=== PATIENT | male | born 1990 | race Two or more races ===

== ENCOUNTER 2017-09-04 15:24 | Emergency (ER) | payer OTHER ==
[~2017-09-04] VITALS: Ht 177.8 cm; Wt 140.6 kg
--- NOTE | 2017-09-04 15:56 | Emergency Room Report ---
History of Present Illness General Chief Complaint: Back Pain-No Injury Present Illness HPI 26 YO Male presents to ED c/o 11/26 in severity acute onset LBP s/p Lidocaine injection to thoracic spine 2 days ago. No fevers or chills. No paresthesias or urinary retention or incontinence. He reports pain is primarily on the left side and on occasion will shoot down towards the left leg. Patient reports having chronic back pain after recent accident for which he is not receiving the spinal lidocaine injections for. He reports his next appointment is on October 16. Denies new trauma or fall. denies night sweats, or hx of cancer. pt. reports hx of herniating disks at the level of where his pain is. he presents with CD MRI images on CD. Denies loss of sensation or gross motor movements of the extremities, Denies CP, Palpitations, LOC, AMS, dizziness, Changes in Vision, weakness, difficulty ambulating,or a sudden severe headache. Allergies: Coded Allergies: No Known Allergies (Unverified , 09/04/17) Patient History Past Medical History: see triage record Past Surgical History: none Pertinent Family History: none Reviewed Nursing Documentation: PMH: Agreed; PSxH: Agreed Review of Systems All Other Systems: negative except mentioned in HPI Physical Exam Vital Signs Date Time Temp Pulse Resp B/P (MAP) Pulse Ox O2 Delivery O2 Flow Rate FiO2 09/04/17 15:43 98.1 90 20 112/68 94 Room Air 98.1 Sp02 EP Interpretation: reviewed, normal General Appearance: alert, GCS 15, non-toxic, mild distress Head: normocephalic, atraumatic ENT: hearing grossly normal, normal voice Neck: full range of motion Respiratory: lungs clear, normal breath sounds, speaking full sentences Cardiovascular #1: regular rate, rhythm Musculoskeletal: back normal, gait/station normal - compensatory, normal range of motion, tender - Left lumbar paraspinal TTP, TTP midline 2 inches below injection sites, no tenderness of the injection sites no evidence of Superficial ST infection. Neurologic: alert, oriented x3, responsive, motor strength/tone normal, sensory intact, normal gait - compensatory, speech normal, other - no saddle anesthesia, grossly normal Psychiatric: judgement/insight normal Skin: normal color, no rash, warm/dry, well hydrated Medical Decision Making PA Attestation Dr. Barragan is my supervising Physician whom patient management has been discussed with. Diagnostic Impression: Primary Impression: Back pain Qualified Codes: M54.42 - Lumbago with sciatica, left side ER Course 26 YO Male presents to ED c/o 11/26 in severity acute onset LBP s/p Lidocaine injection to thoracic spine 2 days ago. No fevers or chills. No paresthesias or urinary retention or incontinence. He reports pain is primarily on the left side and on occasion will shoot down towards the left leg. Patient reports having chronic back pain after recent accident for which he is not receiving the spinal lidocaine injections for. He reports his next appointment is on October 16. Denies new trauma or fall. denies night sweats, or hx of cancer. pt. reports hx of herniating disks at the level of where his pain is. he presents with CD MRI images on CD. Denies loss of sensation or gross motor movements of the extremities, Denies CP, Palpitations, LOC, AMS, dizziness, Changes in Vision, weakness, difficulty ambulating,or a sudden severe headache. Ddx considered: epidural abscess, fracture, sprain/strain, meningitis, spinal chord injury, sciatica, cauda equina, Pyelonephritis, renal calculi just to name a few. Vital signs reviewed and are WNL during ED visit. Pt. is afebrile with no signs of infection No new symptoms, and denies recent trauma. No saddle anesthesia noted, Pt. denies incontinence Neurovascular is intact ROM is limited due to pain *Mild Tenderness to palpation to the left sided paraspinal muscles of the lower back with some midline tenderness as well. *Pt. describes pain today as moderate and radiates across the lower back and at times down the left post. leg. ORDERS: none warranted at this time. INTERVENTIONS: - [place] PO -Low suspicion for abscess at this time, however pt. needs close follow up for re-evaluation. no cauda equina. D/W Pt. that ED reserves rx of narcotics for acute injuries. Will make an exception this time but for further pain management is it recommended to consult PCP or a Chronic Pain management doctor. A provider who can safely prescribe controlled substances with close follow up. Pt. was given strict ED return precautions. DISCHARGE: At this time pt. is stable for d/c to home. Will provide printed patient care instructions, and any necessary prescriptions. Care plan and follow up instructions have been discussed with the patient prior to discharge. Last Vital Signs Date Time Temp Pulse Resp B/P (MAP) Pulse Ox O2 Delivery O2 Flow Rate FiO2 09/04/17 15:43 98.1 90 20 112/68 94 Room Air 98.1 Disposition: HOME, SELF-CARE Condition: Stable Scripts Lidocaine (Lidoderm) 1 Each Adh..patch 1 PATCH TOPIC DAILY, #20 PATCH 0 Refills Patch(es) may remain in place for up to 12 hours in any 24-hour period. Prov: Ling Song 09/04/17 Hydrocodone Bit/Acetaminophen 10-325* (NORCO 10-325*) 1 Each Tablet 1 TAB ORAL Q8HR PRN for For Pain, #15 TAB 0 Refills PRN PAIN Prov: Ling Song 09/04/17 Patient Instructions: Back Pain, Adult Additional Instructions: Take medications as directed. Follow up with a Primary Care Provider in 3-5 days and/or Orthopedic Spinal specialist, even if your symptoms have resolved. --Please review list of primary care clinics, if you do not already have a primary care provider Return sooner to ED if new symptoms occur, or current symptoms become worse. RETURN IMMEDIATELY IF YOU HAVE FEVERS, NUMBNESS/TINGLING Below the waist, or INABILITY TO URINATE, No CONTROL OVER YOUR BOWEL or BLADDER. Do not drink alcohol, drive, or operate heavy machinery while taking NORCO as this may cause drowsiness. - Please note that this Emergency Department Report was dictated using [employer] marketing specialist technology software, occasionally this can lead to erroneous entry secondary to interpretation by the dictation equipment. Ling Song Sep 04, 2017 15:56
[2017-09-04] MEDS ORDERED: HYDROcodone/Acetamin 10/325 tab ORAL ONE (16:00)
[2017-09-04] MEDS ORDERED: NORCO 10-325 T1 EACH ORAL (16:04)
[2017-09-04] MEDS ORDERED: LIDODERM700 M1 TOPIC (16:04)
[2017-09-04 16:11] VITALS: BP 121/75
[2017-09-04 16:14] VITALS: BP 121/70
== END 2017-09-04 19:55 | disposition home or self-care (01) ==
LOC: EMR 19:41
DX: M54.5 Low back pain (principal)
CPT/HCPCS: 99284

== ENCOUNTER 2017-09-18 20:27 | Emergency (ER) | payer OTHER ==
[~2017-09-18] VITALS: Ht 177.8 cm; Wt 140.6 kg
[~2017-09-18 20:27] MED LIST: LIDODERM700 M1 TOPIC; NORCO 10-325 T1 EACH ORAL
[2017-09-18 20:41] VITALS: BP 109/51
[2017-09-18] MEDS ORDERED: NORCO 10-325 T1 EACH ORAL (20:58)
[2017-09-18] MEDS ORDERED: LIDODERM700 M1 TOPIC (20:58)
[2017-09-18] MEDS ORDERED: Norco 5mg/325mg tab ORAL ONE (21:00)
[2017-09-18 21:06] VITALS: BP 109/51
--- NOTE | 2017-09-18 22:09 | Emergency Room Report ---
History of Present Illness General Chief Complaint: Back Injury Source: Patient Present Illness HPI Patient is a 27-year-old male presented after increased back pain. Patient previous history of the thoracic spine injury for which he is scheduled for surgery. Patient denies any fever. He reports having prior episodes of similar symptoms. Patient reports having had normal bowel movements. He reports intermittent constipation. He denies any leakage of urine currently. He reported having some issues with his thoracic spine with some compression of the thecal sac. The patient denies any numbness or weakness to his extremities this time. Allergies: Coded Allergies: No Known Allergies (Unverified , 09/04/17) Patient History Reviewed Nursing Documentation: PMH: Agreed; PSxH: Agreed Nursing Documentation-PMH Past Medical History: No Stated History Review of Systems All Other Systems: negative except mentioned in HPI Physical Exam Vital Signs Date Time Temp Pulse Resp B/P (MAP) Pulse Ox O2 Delivery O2 Flow Rate FiO2 09/18/17 20:32 99.0 87 18 116/72 98 Room Air 99.0 General Appearance: well appearing, no apparent distress, GCS 15, obese Head: normocephalic, atraumatic ENT: hearing grossly normal, normal voice Neck: full range of motion, supple Respiratory: no respiratory distress, speaking full sentences Cardiovascular #1: normal inspection, no edema Musculoskeletal: normal inspection, no calf tenderness, decreased range of mation Neurologic: normal inspection, alert, oriented x3, responsive, nicking machine operator III-XII nml as tested, normal gait Psychiatric: mood/affect normal Skin: no rash Medical Decision Making Diagnostic Impression: Primary Impression: Chronic back pain ER Course Patient presented for back pain. Differential diagnosis included but was not limited to herniated disc, cauda equina syndrome, abdominal aortic aneurysm, perforated ulcer, spinal epidural abscess, spinal stenosis, lumbar fracture, metastatic lesion, pyelonephritis. Patient has a benign exam and does not appear to require any further imaging or laboratory testing at this time. The patient was noted to have chronic back pain which appears to be the requiring chronic pain medications prior surgery. The patient was advised follow-up with his surgeon for further medication was advised that he would not be giving any further narcotic pain medications at the present to the emergency department again. Patient is advised to return if he began having incontinence or bowel or bladder dysfunction or fever. Last Vital Signs Date Time Temp Pulse Resp B/P (MAP) Pulse Ox O2 Delivery O2 Flow Rate FiO2 09/18/17 21:06 98.3 71 17 109/51 99 Room Air 98.3 Status: improved Disposition: HOME, SELF-CARE Condition: Stable Scripts Lidocaine (Lidoderm) 1 Each Adh..patch 1 PATCH TOPIC DAILY, #20 PATCH 0 Refills Patch(es) may remain in place for up to 12 hours in any 24-hour period. Prov: Jonathon Duran MD 09/18/17 Hydrocodone Bit/Acetaminophen 10-325* (NORCO 10-325*) 1 Each Tablet 1 TAB ORAL Q8HR PRN for For Pain, #15 TAB 0 Refills PRN PAIN Prov: Jonathon Duran MD 09/18/17 Referrals: [facility],REFERRING (PCP) Patient Instructions: Back Pain, Adult Jonathon Duran MD Sep 18, 2017 22:09
== END 2017-09-18 21:20 | disposition home or self-care (01) ==
LOC: EMR 21:11
DX: G89.29 Other chronic pain (principal); M54.5 Low back pain
CPT/HCPCS: 99283

== ENCOUNTER 2017-11-12 05:33 | Inpatient (IN) | payer OTHER ==
[2017-11-12] VITALS (11 sets, daily range): BP systolic 128–162; BP diastolic 70–90
[~2017-11-12] VITALS: Ht 177.8 cm; Wt 140.6 kg
[2017-11-12] MEDS ORDERED: LR 1000ml 1,000 ML IVLG SCH (06:18)
--- NOTE | 2017-11-12 06:20 | Anethesia Preoperative Eval ---
Anesthesia Pre-op PMH/ROS General Date of Evaluation: Nov 12, 2017 Time of Evaluation: 07:26 Anesthesiologist: Neelam ASA Score: ASA 2 Mallampati Score Class I : Soft palate, uvula, fauces, pillars visible Class II: Soft palate, uvula, fauces visible Class III: Soft palate, base of uvula visible Class IV: Only hard plate visible Mallampati Classification: Class II Surgeon: Jonas Diagnosis: Back Pain Surgical Procedure: T 11-12 TLIF Anesthesia History: none Family History: no anesthesia problems Allergies: Coded Allergies: No Known Allergies (Unverified , 09/04/17) Medications: see eMAR Past Medical History Cardiovascular: Reports: HTN Neurologic/Psychiatric: Reports: depression/anxiety Other: obesity Anesthesia Pre-op Phys. Exam Physician Exam Vital Signs Date Time Temp Pulse Resp B/P (MAP) Pulse Ox O2 Delivery O2 Flow Rate FiO2 11/12/17 06:22 98.3 85 18 162/79 (106) 98 98.3 11/12/17 06:38 Room Air Constitutional: NAD Neurologic: CN 2-12 intact Cardiovascular: RRR Respiratory: CTA Gastrointestinal: S/NT/ND Airway Exam Mallampati Score: Class II MO: full ROM: full Teeth: intact Anesthesia Pre-op A/P Risk Assessment & Plan Assessment: ASA 2 Plan: GA, SED, GlideScope Go Status Change Before Surgery: No Pre-Antibiotics Dru Grams Ancef IV Given Within 1 Hr of Incision: Yes Time Given: 07:41 Pascual Richter MD Nov 12, 2017 06:20
[2017-11-12] MEDS ORDERED: Zemuron 50mg/5ml Inj IV ONE (06:23)
[2017-11-12] MEDS ORDERED: Metoclopramide 10mg/2ml Inj IVP PRN (06:30)
[2017-11-12] MEDS ORDERED: oxyCODONE HCL/Acetaminophen 5/325mg ORAL PRN (06:30)
[2017-11-12] MEDS ORDERED: fentaNYL 100 mcg/2 mL IV PRN (06:30)
[2017-11-12] MEDS ORDERED: HYDROcodone/Acetamin 7.5/325 tab ORAL PRN ×2 (06:30→14:01)
[2017-11-12] MEDS ORDERED: Atropine Sulfate 0.4mg/ml inj IVP PRN (06:30)
[2017-11-12] MEDS ORDERED: Meperidine 50mg/ml Inj(FOR RIGORS ONLY) IVP PRN (06:30)
[2017-11-12] MEDS ORDERED: Midazolam 2mg/2ml Inj IVP PRN (06:30)
[2017-11-12] MEDS ORDERED: Hydromorphone 0.5mg/0.5ml inj IVP PRN (06:30)
[2017-11-12] MEDS ORDERED: LORazepam Inj 2mg/ml 1ml IV PRN ×2 (06:30→20:30)
[2017-11-12] MEDS ORDERED: Acetaminophen (Non formulary) 100 ML IV SCH (06:30)
[2017-11-12] MEDS ORDERED: Labetalol 5mg/ml 20ml vial IV PRN (06:30)
[2017-11-12] MEDS ORDERED: Norco 5mg/325mg tab ORAL PRN (06:30)
[2017-11-12] MEDS ORDERED: Ketorolac 30mg Inj IV PRN ×2 (06:30)
[2017-11-12] MEDS ORDERED: DiphenhydrAMINE 50mg/ml Inj IVP PRN (06:30)
[2017-11-12] MEDS ORDERED: Lidocaine 1% MPF 10mg/ml 5ml ONE (07:00)
[2017-11-12] MEDS ORDERED: Sodium Chloride 10ml vial INJ ONE (07:00)
[2017-11-12] MEDS ORDERED: Dexamethasone 4mg/ml vial ONE (07:00)
[2017-11-12] MEDS ORDERED: Lidocaine 1% Plain 30 ml INJ ONE ×3 (07:09→10:48)
[2017-11-12] MEDS ORDERED: Bupivacaine w/Epi 0.25% 30ml Vial INJ ONE (07:20)
[2017-11-12] MEDS ORDERED: Gelfoam Size TOPIC ONE (07:20)
[2017-11-12] MEDS ORDERED: Vancomycin 1gm inj IVPB ONE (07:20)
[2017-11-12] MEDS ORDERED: Thrombin 5000 units TOPIC ONE (07:20)
[2017-11-12] MEDS ORDERED: Thrombin 5000 units spray kit TOPIC ONE (07:20)
[2017-11-12] MEDS ORDERED: Bacitracin 50000 Units Vial ONE (07:21)
[2017-11-12] MEDS ORDERED: Gelfoam Absorbable 1gm powder pkt TOPIC ONE (07:21)
[2017-11-12] MEDS ORDERED: Dyna-Hex 2% Top Sol 2oz TOPIC ONE (07:24)
[2017-11-12] MEDS ORDERED: Propofol 1,000mg/ 100ml btl IV ONE (07:30)
[2017-11-12] MEDS ORDERED: LR 1000ml ONE (07:30)
--- NOTE | 2017-11-12 07:39 | Pre-Procedure Note/Attestation ---
Pre-Procedure Note/Attestation Complete Prior to Procedure Planned Procedure: bilateral Procedure Narrative: T11-12 left, possible bilateral lateral extracavitary approach for discectomy, decompression and instrumented fusion Indications for Procedure Pre-Operative Diagnosis: T11-12 symptomatic herniated disc and stenosis Attestation I attest that I discussed the nature of the procedure; its benefits; risks and complications; and alternatives (and the risks and benefits of such alternatives ), prior to the procedure, with the patient (or the patient's legal personal financial representative). I attest that, if there was a reasonable possibility of needing a blood transfusion, the patient (or the patient's legal personal financial representative) was given the [place] [employer] standardized written summary, pursuant to the [place] Blood Safety Act ([place] Health and Safety Code # 1645, as amended). I attest that I re-evaluated the patient just prior to the surgery and that there has been no change in the patient's H&P, except as documented below: Benjamin Mcdaniel Nov 12, 2017 07:39
[2017-11-12] MEDS ORDERED: fentaNYL 100 mcg/2 mL IV ONE ×3 (08:13→10:58)
[2017-11-12] MEDS ORDERED: Bupivacaine 0.5% Inj 30 ml vial INJ ONE (08:33)
--- NOTE | 2017-11-12 11:10 | Immediate Post-Op Evaluation ---
Immediate Post-Op Evalulation Immediate Post-Op Evalulation Procedure: T 11-12 TLIF Date of Evaluation: Nov 12, 2017 Time of Evaluation: 11:53 IV Fluids: 1000 LR Blood Products: 0 Estimated Blood Loss: 150 Urinary Output: 200 Blood Pressure Systolic: 151 Blood Pressure Diastolic: 79 Pulse Rate: 97 Respiratory Rate: 18 O2 Sat by Pulse Oximetry: 100 Temperature (Fahrenheit): 97.4 Pain Score (1-10): 3 Nausea: No Vomiting: No Patient Status: awake, reacts, patent, extubated, none Hydration Status: adequate Dru Grams Ancef IV Given Within 1 Hr of Incision: Yes Time Given: 07:41 Pascual Richter MD Nov 12, 2017 11:10
[2017-11-12] MEDS ORDERED: Naloxone 0.4mg/ml Inj IVP PRN (11:30)
[2017-11-12] MEDS: HYDROmorphone 1mg/ml Carpuject SUBQ PRN ×3 (14:40→22:49)
[2017-11-12] MEDS: D5 1/2NS w/KCl 20mEq 1,000 ML IV SCH (14:40)
[2017-11-12] MEDS: ceFAZolin 2gm/50ml Premix 50 ML IV SCH ×2 (14:40→22:50)
--- NOTE | 2017-11-12 15:04 | Diagnostic Imaging Report ---
INDICATION: Pain, intraoperative TECHNIQUE: Intraoperative imaging Fluoroscopy time: 12 seconds Total dose: 0.66079 mGym2 Total number of images: 4 COMPARISON: None FINDINGS: Intraoperative images document initially needle posterior to what is probably the L1 vertebral body, subsequent posterior what is probably the T10 vertebral body. Subsequent images document posterior surgical fusion of T11 and T12 IMPRESSION: Intraoperative imaging, as described
[2017-11-12] MEDS ORDERED: ceFAZolin sod 2 GM in D5W 110 ML IV SCH (15:30)
[2017-11-12] MEDS: Methocarbamol 500mg tab ORAL SCH ×2 (18:45→20:20)
[2017-11-12] MEDS: Docusate 100mg cap ORAL SCH (18:45)
--- NOTE | 2017-11-12 21:15 | Operative Note - Dictated ---
DATE OF OPERATION: 11/12/2017 NEUROSURGERY OPERATIVE REPORT INDICATIONS FOR THE PROCEDURE: The patient is a 27-year-old gentleman, who has persistent back pain with thoracic radiculopathy and some signs of myelopathy. He has attempted and failed conservative measures. Therefore, surgical intervention was offered. Both surgical and nonsurgical options were discussed. The patient requested surgical intervention. RISKS AND BENEFITS DISCUSSION: The patient was appraised of all objectives, benefits, risks, and potential complications of the procedure including, but not limited to worsening of current status, possible need for further procedures, risk of infection, headache, CSF leak, possible spinal cord injury resulting in paralysis, injury to major blood vessels causing hemorrhage, stroke, loss of language function, coma, and even . No assurance was given whether the symptoms would improve following the procedure. Informed consent was obtained and secured in the chart after the patient voiced understanding of these risks and decided to proceed with the operation. PREOPERATIVE DIAGNOSES: 1. T11-12 herniated disc. 2. Thoracic radiculopathy. 3. Spinal cord compression with myelopathy. 4. Focal kyphotic deformity. POSTOPERATIVE DIAGNOSES: 1. T11-12 herniated disc. 2. Thoracic radiculopathy. 3. Spinal cord compression with myelopathy. 4. Focal kyphotic deformity. OPERATION PERFORMED: 1. Left-sided lateral extra cavitary approach for T11-12 diskectomy and decompression of spinal cord. Focal deformity correction was also performed for an additional procedure in this area as well. 2. T11-12 interbody arthrodesis. 3. Posterior segmental instrumentation at T11-12. 4. Posterior lateral arthrodesis at T11-12. 5. Application of autograft. 6. Application of allograft. 7. Microscope. 8. Fluoroscope. 9. Neuro monitoring. 10. Paraspinal intramuscular injections for postoperative pain control. 11. modifier for extra time spent greater than 60 minutes due to the patient's morbid obesity causing extremely difficult anatomy for dissection. SURGEON: Benjamin Mcdaniel M.D. WET MIX OPERATOR: None. ANESTHESIA: SOLE STAPLER WELT. ANESTHESIOLOGIST: Pascual Richter M.D. ESTIMATED BLOOD LOSS: Approximately 150 mL. FINDINGS: There was a large disc at T11-12 with calcified portions causing spinal cord compression. Specimens sent were the disk that was removed. COMPLICATIONS: None. TECHNIQUE: The patient was brought in to the operating room. The patient was then sedated and intubated by the anesthesia team. Preoperative antibiotics were given. Eyes were taped shut after ointment was applied to prevent corneal abrasion. Moore catheter was inserted. The patient was then transferred onto the operating table on to the Kevin table in prone position. A Wilner Hugger was placed over the exposed lower portions of the body to maintain control of core body temperature. All pressure points were carefully padded. Neuromonitoring team placed the needles in appropriate position and baselines were obtained. It should be noted that extra time was spent during positioning due to the patient's morbid obesity. C-arm was brought in and localization of the operative levels was performed. The skin was prepped and draped in the standard surgical fashion. A time-out was taken. A linear incision was performed with a scalpel blade and dissection was continued down to the fascial layer. The fascia was then opened bilaterally and dissection was continued over the lamina in transverse processes of T11 and T12. The fluoroscope was used again to confirm the correct levels. It should be noted that extra time was spent during dissection due to the patient's morbid obesity, making exposure of this procedure much more difficult than normal. Afterwards, using anatomical landmarks, pedicle screws were placed into T11 and T12 pedicles bilaterally using titanium instrumentation in a segmental fashion. Afterwards, attention was paid towards the left side. The microscope was brought in and complete left-sided T11 laminectomy was carried out. Complete facetectomy was performed as well and pedicles of T11 and T12 were exposed completely isolating the exiting T11 nerve root. This created excellent to come from the bilateral approach into the disc space. First, the disc space was entered at T11-12. Complete diskectomy was carried out. This created a vacuum underneath the herniated portion and carefully, the herniated disc was resected and afterwards using Griffin curette, the calcified portions of the herniated disc were pushed into the T11-12 disc space and ultimately this achieved excellent decompression of the spinal cord. Once done so, arthrodesis of the endplates of T11-12 was carried out. The area was copiously irrigated with antibiotic solution. Allograft and autograft was then placed into the T11-12 disc space. Afterwards, arthrodesis of the posterior lateral area of the remaining facets on the right side and the lamina of the right side was performed where allograft and autograft was placed in this position as well. Next, titanium rods were placed into the pedicle screw tulips and reduction techniques were carried out in order to correct the kyphotic deformity at this level. Once done so, the titanium jaya was finally tightened to maintain it in place with the correct deformity. The spinal cord and canal was again rechecked confirming excellent decompression of the entire canal both ventrally and dorsally. Afterwards, paraspinal injection with Marcaine was performed to achieve to help with postoperative pain control. Excellent hemostasis was maintained throughout the entire case. Watertight fascial closure was then carried out. The subcutaneous layers were reapproximated followed by application of skin glue as a final layer and sterile dressing was applied. All needle count, sponge count, and instrument counts were correct at the end of the case x2. The neuromonitoring signals were stable throughout the entire case. It should be noted that multiple motor signals were performed throughout the case as well confirming stable signals throughout all the critical portions of the case as well. The patient was then transferred back to recovery in stable condition. The patient was examined after surgical recovery and was able to move all extremities without difficulty. Benjamin Mcdaniel MD DR: ANIVAL JOB#: [id number] CC:
[2017-11-13] VITALS: BP 131/70
[2017-11-13] MEDS: HYDROmorphone 1mg/ml Carpuject SUBQ PRN ×6 (03:25→22:00)
[2017-11-13] MEDS: D5 1/2NS w/KCl 20mEq 1,000 ML IV SCH ×2 (05:38→17:20)
[2017-11-13] MEDS: ceFAZolin 2gm/50ml Premix 50 ML IV SCH (07:30)
[2017-11-13 08:00] VITALS: BP 134/66
[2017-11-13] MEDS: Docusate 100mg cap ORAL SCH ×2 (09:00→17:12)
[2017-11-13 10:41] LABS: BASOPHILS % (AUTO) 0.7 % (0.0-2.0); EOSINOPHILS % (AUTO) 0.1 % (0.0-3.0); HEMATOCRIT 39.6 % (42.0-52.0); HEMOGLOBIN 13.2 G/DL (14.2-18.0); LYMPHOCYTES % (AUTO) 21.4 % (20.0-45.0); MEAN CORPUSCULAR VOLUME 88 FL (80-99); MONOCYTES % (AUTO) 10.9 % (1.0-10.0); PLATELET COUNT 244 K/UL (150-450); RED BLOOD COUNT 4.49 M/UL (4.70-6.10); RED CELL DISTRIBUTION WIDTH 11.4 % (11.6-14.8); WHITE BLOOD COUNT 13.5 K/UL (4.8-10.8)
[2017-11-13 10:56] LABS: ANION GAP 8 mmol/L (5-15); BLOOD UREA NITROGEN 13 mg/dL (7-18); CALCIUM 8.1 MG/DL (8.5-10.1); CARBON DIOXIDE 27 MMOL/L (21-32); CHLORIDE 105 MMOL/L (98-107); CREATININE 0.9 MG/DL (0.55-1.30); POTASSIUM 3.5 MMOL/L (3.5-5.1); SODIUM 140 MMOL/L (136-145)
--- NOTE | 2017-11-13 11:47 | 48 Hour Post Anesthesia Eval ---
Post Anesthesia Evaluation Procedure: T 11-12 TLIF Date of Evaluation: Nov 13, 2017 Time of Evaluation: 11:44 Blood Pressure Systolic: 124 0: 76 Pulse Rate: 82 Respiratory Rate: 20 Temperature (Fahrenheit): 97.6 O2 Sat by Pulse Oximetry: 98 Airway: patent Nausea: No Vomiting: No Pain Intensity: 3 Cardiopulmonary Status: stable Follow-up Care/Observations: Complains on significant burning sensation - pain in and around big toes area L> R Post-Anesthesia Complications: none Follow-up care needed: N/A Lm Varma MD Nov 13, 2017 11:47
[2017-11-13 12:00] VITALS: BP 129/73
--- NOTE | 2017-11-13 12:33 | Consultation ---
History of Present Illness General Date patient seen: Nov 13, 2017 Present Illness HPI 27-year-old gentleman, who has persistent back pain with thoracic radiculopathy and some signs of myelopathy. the pt has been agitated and combative toward staff. the pt has hx of substance use d/o and psych issues. he was hostile and uncooperative with eval. no si/hi Allergies: Coded Allergies: No Known Allergies (Unverified , 09/04/17) Medication History Scheduled Lidocaine (Lidoderm), 1 PATCH TOPIC DAILY Scheduled PRN Hydrocodone Bit/Acetaminophen 10-325* ([place] 10-325*), 1 TAB ORAL Q8HR PRN for For Pain Patient History Limited by: medical condition History Provided By: Patient, Medical Record Healthcare decision maker magno(brien) Resuscitation status Full Code Advanced Directive on File No Past Medical/Surgical History Past Medical/Surgical History: (1) Chronic back pain (2) Thoracic stenosis Review of Systems Psychiatric: Reports: anxiety, depressed feelings, emotional problems Physical Exam General Appearance: alert, morbidly obese Neurologic: oriented x 3, responsive, depressed affect Last 24 Hour Vital Signs Date Time Temp Pulse Resp B/P (MAP) Pulse Ox O2 Delivery O2 Flow Rate FiO2 11/13/17 11:47 207.7 82 20 98 11/13/17 08:00 99.0 85 20 134/66 (88) 100 99.0 11/13/17 00:00 98.4 80 16 131/70 (90) 97 98.4 11/12/17 20:25 98.6 82 19 128/76 (93) 97 98.6 11/12/17 19:16 98.1 11/12/17 18:46 98.1 11/12/17 16:00 98.1 77 20 128/72 (90) 97 98.1 11/12/17 14:40 97.8 11/12/17 12:50 97.8 76 13 134/77 100 Nasal Cannula 3 97.8 11/12/17 12:50 97.8 11/12/17 12:35 79 15 131/70 100 Nasal Cannula 3 Intake and Output 11/12/17 11/13/17 19:00 07:00 Intake Total 1755 ml 750 ml Output Total 1100 ml 1200 ml Balance 655 ml -450 ml Intake Oral 480 ml IV Total 1275 ml 750 ml Output Urine Total 950 ml 1200 ml Estimated Blood Loss 150 ml Laboratory Tests Test 11/13/17 10:30 White Blood Count 13.5 K/UL (4.8-10.8) H Red Blood Count 4.49 M/UL (4.70-6.10) L Hemoglobin 13.2 G/DL (14.2-18.0) L Hematocrit 39.6 % (42.0-52.0) L Mean Corpuscular Volume 88 FL (80-99) Mean Corpuscular Hemoglobin 29.4 PG (27.0-31.0) Mean Corpuscular Hemoglobin Concent 33.3 G/DL (32.0-36.0) Red Cell Distribution Width 11.4 % (11.6-14.8) L Platelet Count 244 K/UL (150-450) Mean Platelet Volume 7.2 FL (6.5-10.1) Neutrophils (%) (Auto) 67.0 % (45.0-75.0) Lymphocytes (%) (Auto) 21.4 % (20.0-45.0) Monocytes (%) (Auto) 10.9 % (1.0-10.0) H Eosinophils (%) (Auto) 0.1 % (0.0-3.0) Basophils (%) (Auto) 0.7 % (0.0-2.0) Sodium Level 140 MMOL/L (136-145) Potassium Level 3.5 MMOL/L (3.5-5.1) Chloride Level 105 MMOL/L (98-107) Carbon Dioxide Level 27 MMOL/L (21-32) Anion Gap 8 mmol/L (5-15) Blood Urea Nitrogen 13 mg/dL (7-18) Creatinine 0.9 MG/DL (0.55-1.30) Estimat Glomerular Filtration Rate > 60 mL/min (>60) Glucose Level 109 MG/DL (74-106) H Calcium Level 8.1 MG/DL (8.5-10.1) L Height (Feet): 5 Height (Inches): 10.00 Weight (Pounds): 310 Medications Current Medications Medications (Trade) Dose Ordered Sig/Glendy Route PRN Reason Start Time Stop Time Status Last Admin Dose Admin Acetaminophen/ Hydrocodone Bitart ([place] 7.5/325) 1 tab Q3H PRN ORAL pain score 4-6 11/12/17 14:01 11/19/17 14:00 Dextrose/ Electrolytes 1,000 ml @ 75 mls/hr [id number] IV 11/12/17 15:00 12/12/17 14:59 11/13/17 05:38 Docusate Sodium (Colace) 100 mg TWICE A DAY ORAL 11/12/17 18:00 12/12/17 17:59 11/12/17 18:45 Heparin Sodium (Porcine) (Heparin 5000 units/ml) 5,000 units EVERY 8 HOURS SUBQ 11/14/17 22:00 12/14/17 21:59 Hydromorphone HCl (Dilaudid) 1 mg Q2H PRN SUBQ Severe Pain (Pain Scale 7-10) 11/13/17 09:15 11/20/17 09:14 11/13/17 09:19 Lorazepam (Ativan 2mg/ml 1ml) 1 mg Q4H PRN IV For Anxiety 11/12/17 20:30 11/19/17 20:29 11/12/17 21:19 Naloxone HCl (Narcan) 0.1 mg PRN PRN IVP RR<12/min, pt unarousable 11/12/17 11:30 12/12/17 11:29 Ondansetron HCl (Zofran) 4 mg Q6H PRN IVP Nausea & Vomiting 11/12/17 14:01 12/12/17 14:00 Assessment/Plan Assessment/Plan anxiety d/o substance use d/o mood d/o Nabila Calderon MD Nov 13, 2017 12:33
[2017-11-13] MEDS ORDERED: LORazepam 1mg tab ORAL PRN (12:37)
[2017-11-13 16:00] VITALS: BP 133/68
[2017-11-13 20:00] VITALS: BP 103/54
--- NOTE | 2017-11-13 21:41 | Consultation ---
History of Present Illness General Date patient seen: Nov 13, 2017 Present Illness Allergies: Coded Allergies: No Known Allergies (Unverified , 09/04/17) Medication History Scheduled Lidocaine (Lidoderm), 1 PATCH TOPIC DAILY Scheduled PRN Hydrocodone Bit/Acetaminophen 10-325* ([place] 10-325*), 1 TAB ORAL Q8HR PRN for For Pain Patient History Healthcare decision maker magno(mom) Resuscitation status Full Code Advanced Directive on File No Physical Exam Last 24 Hour Vital Signs Date Time Temp Pulse Resp B/P (MAP) Pulse Ox O2 Delivery O2 Flow Rate FiO2 11/13/17 20:00 98.2 94 18 103/54 (70) 100 98.2 11/13/17 16:00 98.0 87 20 133/68 (89) 100 98.0 11/13/17 12:00 98.6 88 20 129/73 (91) 100 98.6 11/13/17 11:47 207.7 82 20 98 11/13/17 09:00 Room Air 11/13/17 08:00 99.0 85 20 134/66 (88) 100 99.0 11/13/17 00:00 98.4 80 16 131/70 (90) 97 98.4 Intake and Output 11/12/17 11/13/17 19:00 07:00 Intake Total 1755 ml 750 ml Output Total 1100 ml 1200 ml Balance 655 ml -450 ml Intake Oral 480 ml IV Total 1275 ml 750 ml Output Urine Total 950 ml 1200 ml Estimated Blood Loss 150 ml Laboratory Tests Test 11/13/17 10:30 White Blood Count 13.5 K/UL (4.8-10.8) H Red Blood Count 4.49 M/UL (4.70-6.10) L Hemoglobin 13.2 G/DL (14.2-18.0) L Hematocrit 39.6 % (42.0-52.0) L Mean Corpuscular Volume 88 FL (80-99) Mean Corpuscular Hemoglobin 29.4 PG (27.0-31.0) Mean Corpuscular Hemoglobin Concent 33.3 G/DL (32.0-36.0) Red Cell Distribution Width 11.4 % (11.6-14.8) L Platelet Count 244 K/UL (150-450) Mean Platelet Volume 7.2 FL (6.5-10.1) Neutrophils (%) (Auto) 67.0 % (45.0-75.0) Lymphocytes (%) (Auto) 21.4 % (20.0-45.0) Monocytes (%) (Auto) 10.9 % (1.0-10.0) H Eosinophils (%) (Auto) 0.1 % (0.0-3.0) Basophils (%) (Auto) 0.7 % (0.0-2.0) Sodium Level 140 MMOL/L (136-145) Potassium Level 3.5 MMOL/L (3.5-5.1) Chloride Level 105 MMOL/L (98-107) Carbon Dioxide Level 27 MMOL/L (21-32) Anion Gap 8 mmol/L (5-15) Blood Urea Nitrogen 13 mg/dL (7-18) Creatinine 0.9 MG/DL (0.55-1.30) Estimat Glomerular Filtration Rate > 60 mL/min (>60) Glucose Level 109 MG/DL (74-106) H Calcium Level 8.1 MG/DL (8.5-10.1) L Height (Feet): 5 Height (Inches): 10.00 Weight (Pounds): 310 Medications Current Medications Medications (Trade) Dose Ordered Sig/Glendy Route PRN Reason Start Time Stop Time Status Last Admin Dose Admin Acetaminophen/ Hydrocodone Bitart ([place] 7.5/325) 1 tab Q3H PRN ORAL pain score 4-6 11/12/17 14:01 11/19/17 14:00 Dextrose/ Electrolytes 1,000 ml @ 75 mls/hr [id number] IV 11/12/17 15:00 12/12/17 14:59 11/13/17 17:20 Divalproex Sodium (Depakote) 500 mg EVERY 12 HOURS ORAL 11/13/17 21:00 12/13/17 20:59 Docusate Sodium (Colace) 100 mg TWICE A DAY ORAL 11/12/17 18:00 12/12/17 17:59 11/12/17 18:45 Heparin Sodium (Porcine) (Heparin 5000 units/ml) 5,000 units EVERY 8 HOURS SUBQ 11/14/17 22:00 12/14/17 21:59 Hydromorphone HCl (Dilaudid) 1 mg Q2H PRN SUBQ Severe Pain (Pain Scale 7-10) 11/13/17 09:15 11/20/17 09:14 11/13/17 17:09 Lorazepam (Ativan) 2 mg Q6H PRN ORAL For Anxiety 11/13/17 12:37 11/20/17 12:36 11/13/17 19:36 Naloxone HCl (Narcan) 0.1 mg PRN PRN IVP RR<12/min, pt unarousable 11/12/17 11:30 12/12/17 11:29 Ondansetron HCl (Zofran) 4 mg Q6H PRN IVP Nausea & Vomiting 11/12/17 14:01 12/12/17 14:00 Assessment/Plan Assessment/Plan (1) Morbid obesity (2) Thoracic Herniated disc (3) S/p Thoracic Discectomy and decompression (4) Thoracic sprain (5) Lumbar sprain (6) Lumbar Herniated disc (7) Lumbar Radiculopathy seen dictated Servando Holley Nov 13, 2017 21:41
[2017-11-13] MEDS ORDERED: Methocarbamol 500mg tab ORAL PRN (21:45)
[2017-11-13] MEDS ORDERED: HYDROcodone/Acetamin 10/325 tab ORAL PRN (21:45)
[2017-11-13] MEDS: Depakote 500mg tab ORAL SCH (21:59)
[2017-11-14] VITALS: BP 92/55
[2017-11-14] MEDS: HYDROmorphone 1mg/ml Carpuject SUBQ PRN ×2 (02:30→05:45)
[2017-11-14 02:34] VITALS: BP 120/54
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
[2017-11-14 04:00] VITALS: BP 133/83
[2017-11-14] MEDS: D5 1/2NS w/KCl 20mEq 1,000 ML IV SCH (05:45)
[2017-11-14 08:00] VITALS: BP 106/70
[2017-11-14] MEDS: Docusate 100mg cap ORAL SCH (08:06)
[2017-11-14] MEDS: Depakote 500mg tab ORAL SCH (08:06)
[2017-11-14] MEDS ORDERED: ROBAXIN-750750 MG PO (11:42)
[2017-11-14] MEDS ORDERED: PERCOCET 10-321 EACH ORAL (11:42)
[2017-11-14] MEDS ORDERED: COLACE100 MG ORAL (11:43)
[2017-11-14 12:00] VITALS: BP 127/69
--- NOTE | 2017-11-14 15:47 | General Progress Note ---
Assessment/Plan Assessment/Plan anxiety d/o substance use d/o mood d/o depakote ativan Subjective Neurologic/Psychiatric: Reports: anxiety, depressed, emotional problems Allergies: Coded Allergies: No Known Allergies (Unverified , 09/04/17) Objective Last 24 Hour Vital Signs Date Time Temp Pulse Resp B/P (MAP) Pulse Ox O2 Delivery O2 Flow Rate FiO2 11/14/17 12:00 98.7 93 18 127/69 (88) 98 98.7 11/14/17 08:23 Room Air 11/14/17 08:00 99.6 102 17 106/70 (82) 98 99.6 11/14/17 04:00 98.1 100 17 133/83 (100) 98 98.1 11/14/17 02:34 98.8 100 22 120/54 (76) 98 98.8 11/14/17 00:00 98.2 99 17 92/55 (67) 98 98.2 11/13/17 21:00 Room Air 11/13/17 20:00 98.2 94 18 103/54 (70) 100 98.2 11/13/17 16:00 98.0 87 20 133/68 (89) 100 98.0 Intake and Output 11/13/17 11/14/17 19:00 07:00 Intake Total 985 ml 900 ml Output Total 500 ml 300 ml Balance 485 ml 600 ml Intake Oral 910 ml IV Total 75 ml 900 ml Output Urine Total 500 ml 300 ml # Voids 1 Height (Feet): 5 Height (Inches): 10.00 Weight (Pounds): 310 General Appearance: no apparent distress, alert Neurologic: oriented x 3, responsive, depressed affect Nabila Alvarenga MD Nov 14, 2017 15:47
[2017-11-14] MEDS ORDERED: Heparin 5000 units/ml inj SUBQ SCH (22:00)
--- NOTE | 2017-11-17 14:08 | Discharge Summary ---
Discharge Summary Hospital Course Date of Admission Nov 12, 2017 at 05:33 Date of Discharge Nov 14, 2017 at 12:10 Admitting Diagnosis Back pain due to T11-12 herniated disc. Thoracic radiculopathy. Patient was attempted and failed conservative measures. Surgical intervention option was offered. Both surgical and nonsurgical options were discussed. The patient requested surgical intervention, and therefore was admitted for elective surgery. Reason for Hospitalization: elective surgery HPI Hugh Hagen is a 27 year old male who was admitted on Nov 12, 2017 at 05:33 for Back Pain Consultations Dr. Badillo pain specialist Dr Alvarenga-psychiatrist Procedures s/p 11/12/[address] Mcdaniel 1. Left-sided lateral extra cavitary approach for T11-12 diskectomy and decompression of spinal cord. Focal deformity correction was also performed for an additional procedure in this area as well. 2. T11-12 interbody arthrodesis. 3. Posterior segmental instrumentation at T11-12. 4. Posterior lateral arthrodesis at T11-12. 5. Application of autograft. 6. Application of allograft. 7. Microscope. 8. Fluoroscope. 9. Neuro monitoring. 10. Paraspinal intramuscular injections for postoperative pain control. 11. Modifier for extra time spent greater than 60 minutes due to the patient's morbid obesity causing extremely difficult anatomy for dissection. Hospital Course s/p surgery course of recovery uneventful initially IVF s/p perioperative antibiotics neurovascular status intact pain management addressed pain specialist closely followed; pain controlled out of bed with physical therapy fall precautions maintained able to ambulate safely with walker dressing clean, dry, and intact hemodynamically stable started on diet as tolerated and slowly advanced ; able to tolerate diet IVF discontinued antiemetics provided as needed psychiatrist followed psychiatrist optimized psychiatric medication regimen patient counseled on abstinence from street drugs voided freely bowel regimen instituted patient was stable for discharge discharge instruction provided outpatient follow-up with surgeon as advised FINAL DIAGNOSES T11-12 herniated disc. Thoracic radiculopathy. Spinal cord compression with myelopathy. Focal kyphotic deformity. s/p T 11-12 TLIF morbid obesity anxiety disorder mood disorder substance use disorder Discharge Medications Continued Medications: Docusate Sodium* (Colace*) 100 Mg Capsule 100 MG ORAL TWICE A DAY, CAP (This prescription has been renewed) Methocarbamol* (Robaxin-750*) 750 Mg Tablet 750 MG PO Q6HR PRN for prn, #28 TAB 0 Refills (This prescription has been renewed) Oxycodone Hcl/Acetaminophen 10-325 Mg Tablet (Percocet 10-325 Mg Tablet*) 1 Each Tablet 1 TAB ORAL Q4H PRN for For Pain, TAB (This prescription has been renewed) Discharge Condition Upon Discharge: stable Discharge Disposition Patient was discharged to Home (01) Discharge Instructions Discharge Instructions Special Instructions I have been assigned to complete a D/C Summary on this account. I was not involved in the patient management Mary Berkowitz NP Nov 17, 2017 14:08
== END 2017-11-14 12:10 | disposition home or self-care (01) | DRG 460 ==
LOC: SDSOVERFLO 05:33 → 3E 13:10
DX: M51.14 Intervertebral disc disorders with radiculopathy, thoracic region (principal); M51.04 Intervertebral disc disorders with myelopathy, thoracic region; Z68.41 Body mass index [BMI] 40.0-44.9, adult; M48.04 Spinal stenosis, thoracic region; E66.01 Morbid (severe) obesity due to excess calories; F41.9 Anxiety disorder, unspecified; F19.10 Other psychoactive substance abuse, uncomplicated; F39 Unspecified mood [affective] disorder; V89.2XXS Person injured in unspecified motor-vehicle accident, traffic, sequela; F17.200 Nicotine dependence, unspecified, uncomplicated; M40.294 Other kyphosis, thoracic region
CPT/HCPCS: 36415; 72070; 76001; 80048; 85025; 86850; 86900; 86901; 87081; 94003; 94150; J2405

== ENCOUNTER 2018-08-02 06:01 | Emergency (ER) | payer OTHER ==
[~2018-08-02] VITALS: Ht 177.8 cm; Wt 145.1 kg
[~2018-08-02 06:01] MED LIST changes: +COLACE100 MG ORAL; +PERCOCET 10-321 EACH ORAL; +ROBAXIN-750750 MG PO
[2018-08-02 06:03] VITALS: BP 135/92
[2018-08-02] MEDS ORDERED: HYDROmorphone 1mg/ml Carpuject IVP ONE (06:30)
--- NOTE | 2018-08-02 06:38 | Emergency Room Report ---
History of Present Illness General Chief Complaint: Back Pain-No Injury Source: Patient (Ladarius Sparks MD) Present Illness HPI This is a 27-year-old male with a history of spinal fusion of the T12 area in October 2017. He presents with chief complaint of back pain and abdominal pain. Onset for last 2 weeks. The pain is burning sensation. Localized to the back and also to the right upper quadrant area. No nausea no vomiting. No fever chills. Pain is 8 out of 10. No incontinence of bowel or urine. No trauma. Only taking Robaxin for his pain. (Ladarius Sparks MD) Allergies: Coded Allergies: No Known Allergies (Unverified , 09/04/17) Patient History Past Medical History: see triage record, old chart reviewed, psych hx Past Surgical History: other Pertinent Family History: none Social History: Denies: smoking Immunizations: other Reviewed Nursing Documentation: PMH: Agreed; PSxH: Agreed (Ladarius Sparks MD) Nursing Documentation-PMH Past Medical History: No History, Except For Hx Cancer: No Hx Gastrointestinal Problems: No Hx Neurological Problems: No (Ladarius Sparks MD) Review of Systems Eye: Denies: eye pain, blurred vision ENT: Denies: ear pain, nose congestion, throat swelling Respiratory: Denies: cough, shortness of breath Cardiovascular: Denies: chest pain, palpitations Gastrointestinal: Reports: abdominal pain; Denies: diarrhea, nausea, vomiting Musculoskeletal: Reports: back pain; Denies: joint pain Skin: Denies: rash Neurological: Denies: headache, numbness Endocrine: Denies: increased thirst, increased urine Hematologic/Lymphatic: Denies: easy bruising All Other Systems: negative except mentioned in HPI (Ladarius Sparks MD) Physical Exam Vital Signs Date Time Temp Pulse Resp B/P (MAP) Pulse Ox O2 Delivery O2 Flow Rate FiO2 08/02/18 06:03 99.0 92 18 135/92 (106) 95 Room Air Vitals normal Sp02 EP Interpretation: reviewed, normal General Appearance: well appearing, no apparent distress, alert, obese Head: normocephalic, atraumatic Eyes: bilateral eye PERRL, bilateral eye EOMI ENT: hearing grossly normal, normal pharynx Neck: full range of motion, supple, no meningismus Respiratory: chest non-tender, lungs clear, normal breath sounds Cardiovascular #1: regular rate, rhythm, no murmur Gastrointestinal: normal bowel sounds, no mass, no organomegaly, no bruit, non- distended, tenderness - Mild right upper quadrant Musculoskeletal: back normal - Midline lower thoracic upper lumbar scar clean. No step-off. No tenderness. No redness., gait/station normal, normal range of motion Neurologic: alert, oriented x3 Psychiatric: mood/affect normal Skin: warm/dry (Ladarius Sparks MD) Medical Decision Making Diagnostic Impression: Primary Impression: Back pain Qualified Codes: M54.6 - Pain in thoracic spine Additional Impression: Chest wall pain ER Course Presents with back pain and abdominal pain. Clinically, no evidence of cauda equina syndrome, spinal epidural abscess or neoplastic process. Abdominal pain may be secondary to referred pain from his back or gallbladder disease. No evidence of any obstruction. Labs and CT scan pending. I will sign this patient out to Dr. Da Silva for final disposition. (Ladarius Sparks MD) ER Course Hospital Course 27 yo M presents to ED with chest pain and back pain. recent history of back surgery Patient initially seen and evaluated by Dr sparks. please see his note for full history and physical Clinical course Initially CT was ordered for patient but due to patient's weight and body habitus unable to fit in CT I reassessed the patient. It appears that his pain is more focused on the chest and upper back. Not necessarily abdominal pain. Added EKG chest x-ray and cardiac labs Chest x-ray-no cardiomegaly, no rib fracture, no pneumothorax, no acute process. no bony abnormality EKG - NSR, no acute ischemic changes interpreted by me labs - no leukocytosis, hb/hct stable, electrolytes ok, trop negative, lipase ok , lfts ok My examination presentation more consistent with muscle strain/chronic pain. Patient been having intermittent pain since the surgery. No focal neurological deficits. No fevers or chills. Recommend follow-up with the surgeon. Provided with short course of pain medications. Safe for discharge with close outpatient follow-up I. I feel this is a highly complex case requiring extensive working including EKG/Rhythm strip, Xray/CT/US, Blood/urine lab work, repeat exams while in ED, and administration of strong opiates/narcotics for pain control, admission to hospital or close patient follow up. Diagnosis - back pain, chest wall pain Stable and discharged to home with prescription for Motrin, [place], Robaxin, Lidoderm. Instructed to followup with PMD/surgery. Return to ED if symptoms recur or worsen Labs Test 08/02/18 06:25 White Blood Count 9.9 K/UL (4.8-10.8) Red Blood Count 5.27 M/UL (4.70-6.10) Hemoglobin 16.2 G/DL (14.2-18.0) Hematocrit 45.6 % (42.0-52.0) Mean Corpuscular Volume 87 FL (80-99) Mean Corpuscular Hemoglobin 30.7 PG (27.0-31.0) Mean Corpuscular Hemoglobin Concent 35.5 G/DL (32.0-36.0) Red Cell Distribution Width 10.7 % (11.6-14.8) Platelet Count 257 K/UL (150-450) Mean Platelet Volume 6.9 FL (6.5-10.1) Neutrophils (%) (Auto) 59.5 % (45.0-75.0) Lymphocytes (%) (Auto) 30.6 % (20.0-45.0) Monocytes (%) (Auto) 7.6 % (1.0-10.0) Eosinophils (%) (Auto) 1.6 % (0.0-3.0) Basophils (%) (Auto) 0.7 % (0.0-2.0) Sodium Level 140 MMOL/L (136-145) Potassium Level 3.5 MMOL/L (3.5-5.1) Chloride Level 104 MMOL/L (98-107) Carbon Dioxide Level 25 MMOL/L (21-32) Anion Gap 11 mmol/L (5-15) Blood Urea Nitrogen 15 mg/dL (7-18) Creatinine 1.1 MG/DL (0.55-1.30) Estimat Glomerular Filtration Rate > 60 mL/min (>60) Glucose Level 137 MG/DL (74-106) Calcium Level 8.6 MG/DL (8.5-10.1) Total Bilirubin 0.6 MG/DL (0.2-1.0) Aspartate Amino Transf (AST/SGOT) 13 U/L (15-37) Alanine Aminotransferase (ALT/SGPT) 35 U/L (12-78) Alkaline Phosphatase 63 U/L (46-116) Creatine Kinase MB 0.8 NG/ML (0.0-3.6) Troponin I 0.000 ng/mL (0.000-0.056) Total Protein 7.2 G/DL (6.4-8.2) Albumin 4.0 G/DL (3.4-5.0) Globulin 3.2 g/dL Albumin/Globulin Ratio 1.3 (1.0-2.7) Lipase 102 U/L (73-393) (Ventura Da Silva MD) EKG Diagnostic Results Rate: normal Rhythm: NSR ST Segments: no acute changes ASA given to the pt in ED: No (Ventura Da Silva MD) Rhythm Strip Diag. Results EP Interpretation: yes Rhythm: NSR, no PVC's, no ectopy (Ventura Da Silva MD) Chest X-Ray Diagnostic Results Chest X-Ray Diagnostic Results : Chest X-Ray Ordered: Yes # of Views/Limited/Complete: 2 View Indication: Chest Pain EP Interpretation: Yes Interpretation: no consolidation, no effusion, no pneumothorax, no acute cardiopulmonary disease, other - no bony abnormality. Impression: No acute disease Electronically Signed by: Electronically signed by Ventura Da Silva MD (Ventura Da Silva MD) Last Vital Signs Date Time Temp Pulse Resp B/P (MAP) Pulse Ox O2 Delivery O2 Flow Rate FiO2 08/02/18 06:03 99.0 92 18 135/92 (106) 95 Room Air Status: improved (Ladarius Sparks MD) Status: improved (Ventura Da Silva MD) Disposition: HOME, SELF-CARE Condition: Stable Scripts Hydrocodone Bit/Acetaminophen 5-325* ([place] 5-325*) 1 Each Tablet 1 TAB ORAL Q6H PRN for For Pain, #12 TAB 0 Refills Prov: Ventura Da Silva MD 08/02/18 Methocarbamol* (ROBAXIN-750*) 750 Mg Tablet 750 MG PO TID, #21 TAB 0 Refills Prov: Ventura Da Silva MD 08/02/18 Lidocaine (Lidoderm) 1 Each Adh..patch 1 PATCH TOPIC DAILY, #7 PATCH 0 Refills Patch(es) may remain in place for up to 12 hours in any 24-hour period. Prov: Ventura Da Silva MD 08/02/18 Ibuprofen* (MOTRIN*) 600 Mg Tablet 600 MG ORAL Q8H PRN for For Pain, #30 TAB 0 Refills Prov: Ventura Da Silva MD 08/02/18 Ladarius Sparks MD Aug 02, 2018 06:38 Ventura Da Silva MD Aug 02, 2018 09:15
[2018-08-02 06:47] LABS: BASOPHILS % (AUTO) 0.7 % (0.0-2.0); EOSINOPHILS % (AUTO) 1.6 % (0.0-3.0); HEMATOCRIT 45.6 % (42.0-52.0); HEMOGLOBIN 16.2 G/DL (14.2-18.0); LYMPHOCYTES % (AUTO) 30.6 % (20.0-45.0); MEAN CORPUSCULAR VOLUME 87 FL (80-99); MONOCYTES % (AUTO) 7.6 % (1.0-10.0); NEUTROPHILS % (AUTO) 59.5 % (45.0-75.0); PLATELET COUNT 257 K/UL (150-450); RED BLOOD COUNT 5.27 M/UL (4.70-6.10); RED CELL DISTRIBUTION WIDTH 10.7 % (11.6-14.8); WHITE BLOOD COUNT 9.9 K/UL (4.8-10.8)
[2018-08-02 06:58] LABS: ANION GAP 11 mmol/L (5-15); BLOOD UREA NITROGEN 15 mg/dL (7-18); CALCIUM 8.6 MG/DL (8.5-10.1); CARBON DIOXIDE 25 MMOL/L (21-32); CHLORIDE 104 MMOL/L (98-107); CREATININE 1.1 MG/DL (0.55-1.30); POTASSIUM 3.5 MMOL/L (3.5-5.1); SODIUM 140 MMOL/L (136-145)
[2018-08-02 07:02] LABS: ALANINE AMINOTRANSFERASE 35 U/L (12-78); ALBUMIN/GLOBULIN RATIO 1.3 (1.0-2.7); ALKALINE PHOSPHATASE 63 U/L (46-116); ASPARTATE AMINO TRANSFERASE 13 U/L (15-37); BILIRUBIN,TOTAL 0.6 MG/DL (0.2-1.0)
[2018-08-02 07:16] VITALS: BP 129/88
[2018-08-02] MEDS ORDERED: IBUPROFEN600 MG ORAL (08:40)
[2018-08-02] MEDS ORDERED: LIDODERM700 M1 TOPIC (08:40)
[2018-08-02] MEDS ORDERED: ROBAXIN-750750 MG PO (08:40)
[2018-08-02] MEDS ORDERED: NORCO 5-325 TA1 EACH ORAL (08:40)
[2018-08-02 08:42] VITALS: BP 132/87
[2018-08-02 08:46] VITALS: BP 132/87
--- NOTE | 2018-08-05 11:11 | Diagnostic Imaging Report ---
EXAM: XR Chest, 2 Views CLINICAL HISTORY: CP TECHNIQUE: Frontal and lateral views of the chest. COMPARISON: No relevant prior studies available. FINDINGS: Lungs: Unremarkable. No consolidation. Pleural space: Unremarkable. No pneumothorax. Heart: Unremarkable. No cardiomegaly. Mediastinum: Unremarkable. Bones/joints: Unremarkable. Other findings: Post surgical changes are noted at the T12-L1 level. IMPRESSION: No acute findings.
== END 2018-08-02 08:56 | disposition home or self-care (01) ==
LOC: EMR 08:03
DX: M54.6 Pain in thoracic spine (principal); R07.9 Chest pain, unspecified; R10.9 Unspecified abdominal pain; Z98.1 Arthrodesis status; E66.9 Obesity, unspecified; Z68.42 Body mass index [BMI] 45.0-49.9, adult
CPT/HCPCS: 36415; 71046; 80053; 82553; 83690; 84484; 85025; 93005; 96361; 96374; 96375; 99284; J1170; J2405; S0028

== ENCOUNTER 2018-12-16 21:01 | Emergency (ER) | payer OTHER ==
[~2018-12-16] VITALS: Ht 177.8 cm; Wt 145.1 kg
[~2018-12-16 21:01] MED LIST changes: +IBUPROFEN600 MG ORAL; +NORCO 5-325 TA1 EACH ORAL
[2018-12-16] MEDS ORDERED: Ketorolac 30mg Inj IV ONE (21:45)
[2018-12-16] MEDS ORDERED: Acetaminophen 500mg (ES) tab ORAL ONE (21:45)
--- NOTE | 2018-12-16 22:00 | NUR ---
ED Nurse Note: IV ACCESS ESTABLISHED. BLOOD COLLECTED; SENT DOWN TO LAB.
[2018-12-16 22:29] LABS: BASOPHILS % (AUTO) 0.8 % (0.0-2.0); EOSINOPHILS % (AUTO) 2.1 % (0.0-3.0); HEMATOCRIT 46.4 % (42.0-52.0); HEMOGLOBIN 16.2 G/DL (14.2-18.0); LYMPHOCYTES % (AUTO) 23.9 % (20.0-45.0); MEAN CORPUSCULAR VOLUME 88 FL (80-99); NEUTROPHILS % (AUTO) 66.3 % (45.0-75.0); PLATELET COUNT 262 K/UL (150-450); RED BLOOD COUNT 5.25 M/UL (4.70-6.10); RED CELL DISTRIBUTION WIDTH 10.3 % (11.6-14.8); WHITE BLOOD COUNT 11.4 K/UL (4.8-10.8)
[2018-12-16 22:39] LABS: APPEARANCE,URINE CLEAR; BILIRUBIN, URINE NEGATIVE (NEGATIVE); GLUCOSE, URINE (UA) NEGATIVE (NEGATIVE); KETONES,URINE NEGATIVE (NEGATIVE); LEUKOCYTE ESTERASE ,URINE NEGATIVE (NEGATIVE); NITRITE,URINE NEGATIVE (NEGATIVE); PH,URINE 6 (4.5-8.0); PROTEIN,URINE 1+ (NEGATIVE); UROBILINOGEN,URINE 4 MG/DL (0.0-1.0)
[2018-12-16 22:40] LABS: COLOR,URINE YELLOW
[2018-12-16 22:41] LABS: ANION GAP 9 mmol/L (5-15); BLOOD UREA NITROGEN 19 mg/dL (7-18); CARBON DIOXIDE 29 MMOL/L (21-32); CHLORIDE 105 MMOL/L (98-107); CREATININE 1.5 MG/DL (0.55-1.30); POTASSIUM 3.7 MMOL/L (3.5-5.1); SODIUM 142 MMOL/L (136-145)
[2018-12-16 22:45] LABS: ALANINE AMINOTRANSFERASE 66 U/L (12-78); ALBUMIN 3.7 G/DL (3.4-5.0); ALBUMIN/GLOBULIN RATIO 0.9 (1.0-2.7); ALKALINE PHOSPHATASE 59 U/L (46-116); ASPARTATE AMINO TRANSFERASE 23 U/L (15-37); BILIRUBIN,TOTAL 0.6 MG/DL (0.2-1.0)
[2018-12-16] MEDS ORDERED: oxyCODONE HCL/Acetaminophen 5/325mg ORAL ONE (23:15)
--- NOTE | 2018-12-16 23:50 | NUR ---
ED Nurse Note: Report received from GREY [place]. pt in bed, no acutue distress noted
--- NOTE | 2018-12-16 23:50 | NUR ---
HAND-OFF: Report given to GREY Tbubs.
--- NOTE | 2018-12-17 00:11 | Emergency Room Report ---
History of Present Illness General Chief Complaint: Pain Source: Patient Present Illness HPI 28-year-old male presents with an acute on chronic back attack, patient states that he is got sharp pain in his thoracic back, worsened with movement alleviated with rest he denies any IV drug use, no fevers no chills, no bowel bladder retention/incontinence, severity is severe intermittent lasting minutes , patient is requesting strong narcotics, patient presents for evaluation Allergies: Coded Allergies: No Known Allergies (Unverified , 09/04/17) Patient History Past Medical History: see triage record Reviewed Nursing Documentation: PMH: Agreed; PSxH: Agreed Nursing Documentation-PMH Past Medical History: No History, Except For Hx Cancer: No Hx Gastrointestinal Problems: No Hx Neurological Problems: No Review of Systems All Other Systems: negative except mentioned in HPI Physical Exam Vital Signs Date Time Temp Pulse Resp B/P (MAP) Pulse Ox O2 Delivery O2 Flow Rate FiO2 12/16/18 21:09 99.3 96 14 139/84 (102) 95 Room Air Sp02 EP Interpretation: reviewed, normal General Appearance: well appearing, no apparent distress, alert Head: normocephalic, atraumatic Eyes: bilateral eye PERRL, bilateral eye EOMI ENT: uvula midline, moist mucus membranes Neck: supple, thyroid normal, supple/symm/no masses Respiratory: lungs clear, no respiratory distress, no retraction, no accessory muscle use Cardiovascular #1: normal peripheral pulses, regular rate, rhythm, no edema, no gallop, no murmur Gastrointestinal: non tender, soft, no guarding, no rebound Musculoskeletal: other - No midline step offs, tenderness. Neurologic: alert, oriented x3 Psychiatric: mood/affect normal Skin: no rash, warm/dry Medical Decision Making Diagnostic Impression: Primary Impression: Back pain Qualified Codes: M54.6 - Pain in thoracic spine; G89.29 - Other chronic pain ER Course The patient presents with acute onset of back pain. Clinically this patient can be ruled out for serious pathology given there is a completely normal neurological exam, no history of IV drug use, and no history of bowel or bladder incontinence, no perianal numbness/tingling, no constipation or urinary retention. Once the patient's pain was adequately controlled, the patient was able to ambulate and be discharged in stable condition with anticipatory guidance provided. Patient has pain seeking behavior requesting strong narcotics, he states he does not follow-up with his primary. He does not want lidocaine patches. Patient has been rude to nursing staff, and tech. Patient became irate after not getting an opioid prescription. Patient counseled about opioid use d/o Patient refused EKG Dispo home w/ return precautions Laboratory Tests Test 12/16/18 22:00 White Blood Count 11.4 K/UL (4.8-10.8) H Red Blood Count 5.25 M/UL (4.70-6.10) Hemoglobin 16.2 G/DL (14.2-18.0) Hematocrit 46.4 % (42.0-52.0) Mean Corpuscular Volume 88 FL (80-99) Mean Corpuscular Hemoglobin 30.9 PG (27.0-31.0) Mean Corpuscular Hemoglobin Concent 35.0 G/DL (32.0-36.0) Red Cell Distribution Width 10.3 % (11.6-14.8) L Platelet Count 262 K/UL (150-450) Mean Platelet Volume 6.1 FL (6.5-10.1) L Neutrophils (%) (Auto) 66.3 % (45.0-75.0) Lymphocytes (%) (Auto) 23.9 % (20.0-45.0) Monocytes (%) (Auto) 7.0 % (1.0-10.0) Eosinophils (%) (Auto) 2.1 % (0.0-3.0) Basophils (%) (Auto) 0.8 % (0.0-2.0) Urine Color Yellow Urine Appearance Clear Urine pH 6 (4.5-8.0) Urine Specific Red [place] 1.020 (1.005-1.035) Urine Protein 1+ (NEGATIVE) H Urine Glucose (UA) Negative (NEGATIVE) Urine Ketones Negative (NEGATIVE) Urine Blood 1+ (NEGATIVE) H Urine Nitrite Negative (NEGATIVE) Urine Bilirubin Negative (NEGATIVE) Urine Urobilinogen 4 MG/DL (0.0-1.0) H Urine Leukocyte Esterase Negative (NEGATIVE) Urine RBC 5-10 /HPF (0 - 0) H Urine WBC 0 /HPF (0 - 0) Urine Squamous Epithelial Cells Occasional /LPF Urine Amorphous Sediment Moderate /LPF (NONE) H Urine Bacteria Few /HPF (NONE) Sodium Level 142 MMOL/L (136-145) Potassium Level 3.7 MMOL/L (3.5-5.1) Chloride Level 105 MMOL/L (98-107) Carbon Dioxide Level 29 MMOL/L (21-32) Anion Gap 9 mmol/L (5-15) Blood Urea Nitrogen 19 mg/dL (7-18) H Creatinine 1.5 MG/DL (0.55-1.30) H Estimate Glomerular Filtration Rate 55.0 mL/min (>60) Glucose Level 127 MG/DL (74-106) H Calcium Level 9.0 MG/DL (8.5-10.1) Total Bilirubin 0.6 MG/DL (0.2-1.0) Aspartate Amino Transferase (AST) 23 U/L (15-37) Alanine Aminotransferase (ALT) 66 U/L (12-78) Alkaline Phosphatase 59 U/L (46-116) Troponin I 0.000 ng/mL (0.000-0.056) Total Protein 7.6 G/DL (6.4-8.2) Albumin 3.7 G/DL (3.4-5.0) Globulin 3.9 g/dL Albumin/Globulin Ratio 0.9 (1.0-2.7) L Lipase 89 U/L (73-393) Urine Opiates Screen Negative (NEGATIVE) Urine Barbiturates Screen Negative (NEGATIVE) Phencyclidine (PCP) Screen Negative (NEGATIVE) Urine Amphetamines Screen Negative (NEGATIVE) Urine Benzodiazepines Screen Negative (NEGATIVE) Urine Cocaine Screen Negative (NEGATIVE) Urine Marijuana (THC) Screen Positive (NEGATIVE) H Chest X-Ray Diagnostic Results Chest X-Ray Diagnostic Results : Chest X-Ray Ordered: Yes # of Views/Limited/Complete: 1 View Indication: Other - back pain EP Interpretation: Yes Interpretation: no consolidation, no effusion, no pneumothorax, no acute cardiopulmonary disease Impression: No acute disease Electronically Signed by: Bhupendra Guadarrama MD Last Vital Signs Date Time Temp Pulse Resp B/P (MAP) Pulse Ox O2 Delivery O2 Flow Rate FiO2 12/16/18 21:09 99.3 96 14 139/84 (102) 95 Room Air Disposition: HOME, SELF-CARE Condition: Stable Referrals: NON PHYSICIAN (PCP) [facility] Patient Instructions: Back Pain, Adult, [id number] Additional Instructions: The patient was provided with discharge instructions, notified to follow-up with a primary care doctor and or specialist in the next 24-48 hours, and to return to the ED if they have worsening of their symptoms. Please note that this report is being documented using [employer] technology. This can lead to erroneous entry secondary to incorrect interpretation by the dictating instrument. Bhupendra Guadarrama MD Dec 17, 2018 00:11
[2018-12-17 00:18] VITALS: BP 130/79
--- NOTE | 2018-12-17 00:18 | NUR ---
ER DISCHARGE NOTE: Patient is cleared to be discharged per ERMD, pt is aox4, on room air, with stable vital signs. pt was given dc and prescription instructions, but refused to sign it and take it. ID band removed, pt took all his belongings and walked out of ED with steady gait.
--- NOTE | 2018-12-17 11:20 | Diagnostic Imaging Report ---
Indication: Chest pain Comparison: 08/02/2018 A single view chest radiograph was obtained. Findings: Cardiomediastinal appearance is within normal limits for age. The lungs are clear. Pulmonary vascularity is appropriate. The diaphragmatic contour is smooth and costophrenic angles are sharp. No pleural effusions are identified. The bones are unremarkable. Impression: No acute findings
== END 2018-12-17 00:18 | disposition home or self-care (01) ==
LOC: EMR 21:27
DX: M54.6 Pain in thoracic spine (principal); G89.29 Other chronic pain
CPT/HCPCS: 36415; 71045; 80053; 80307; 81003; 83690; 84484; 85025; 96361; 96374; J1885; Z7502; 99284; J7030